=== PATIENT | male | born 1995 | race Caucasian/White ===

== ENCOUNTER 2023-10-04 14:11 | Emergency (ER) | payer SELFPAY ==
[2023-10-04] MEDS ORDERED: Lidocaine 1% PF 2 ML SDV INJECT STA (16:44)
== END 2023-10-04 17:49 | disposition home or self-care (01) ==
LOC: MW.ED 14:11
DX: K04.7 Periapical abscess without sinus (principal)
CPT/HCPCS: 41800; 99283; J3490